=== PATIENT | female | born 1975 | race Caucasian/White ===

== ENCOUNTER 2016-10-22 07:47 | Day surgery (SDC) | payer BC ==
[~2016-10-22] VITALS: Ht 170.2 cm; Wt 60.0 kg
[~2016-10-22 07:47] MED LIST: LANS30CA47; ZOF8 PO
[2016-10-22 09:00] VITALS: Ht 170.2 cm; Wt 60.0 kg
== END 2016-10-22 16:36 | disposition home or self-care (01) ==
LOC: GIL 07:47
PROVIDERS: ATTEND Internal Medicine Gastroenterology
DX: R14.0 Abdominal distension (gaseous) (principal); R11.2 Nausea with vomiting, unspecified; Z32.01 Encounter for pregnancy test, result positive; Z53.09 Procedure and treatment not carried out because of other contraindication
CPT/HCPCS: 84702